=== PATIENT | female | born 2000 | race Two or more races ===

== ENCOUNTER 2023-11-14 09:29 | Outpatient (OUT) | payer OTHER, SELFPAY ==
[2023-11-14 10:06] LABS: Basophils Percent Auto 0.6 % (0.2-2.0); Eosinophils Absolute Auto 0.2 10^3/uL (0.0-0.7); Eosinophils Percent Auto 3.3 % (0.9-7.0); Hematocrit 39.8 % (36.0-48.0); Hemoglobin 13.5 g/dL (12.0-16.0); Immature Granulocytes Abs Auto 0.01 10^3/uL (0.00-0.03); Immature Granulocytes Pct Auto 0.1 % (0.0-0.5); Lymphocytes Absolute Auto 2.1 10^3/uL (1.2-3.8); Lymphocytes Percent Auto 29.9 % (20.5-60.0); Mean Corpuscular HGB Conc 33.9 g/dL (29.9-35.2); Mean Corpuscular Hemoglobin 30.5 pg (26.7-34.0); Mean Platelet Volume 10.6 fL (9.5-13.5); Monocytes Absolute Auto 0.5 10^3/uL (0.3-0.8); Monocytes Percent Auto 7.3 % (1.7-12.0); Neutrophils Percent Auto 58.8 % (43.0-75.0); Platelet Count 189 10^3/uL (150-450); Red Blood Count 4.42 10^6/uL (4.20-5.40); Red Cell Distribution Width 12.3 % (11.0-15.0); White Blood Count 6.9 10^3/uL (4.0-11.0)
[2023-11-14 10:29] LABS: Alanine Aminotransferase 29 U/L (14-59); Albumin Globulin Ratio 1.1; Alkaline Phosphatase 104 U/L (46-116); Anion Gap 11.1; Aspartate Amino Transferase 21 U/L (15-37); Bilirubin Total 0.8 mg/dL (0.2-1.0); Calcium 9.3 mg/dL (8.5-10.1); Chloride 101 mmol/L (98-107); Chol HDL Ratio 3.1; Cholesterol 158 mg/dL (<=200); Estimated GFR (African America >60 (>=60); Estimated GFR (Non-African Ame >60 (>=60); Globulin 3.5 g/dL; Glucose 89 mg/dL (74-106); HDL Cholesterol 51 mg/dL (40-60); LDL Cholesterol Calculated 99.4 mg/dL; Potassium 4.1 mmol/L (3.5-5.1); Sodium 138 mmol/L (136-145); Total Protein 7.5 g/dL (6.4-8.2); Triglycerides 38 mg/dL (<=150); VLDL CHOLESTEROL 7.6 mg/dL
[2023-11-15 05:08] LABS: HIV Ab/p24 Ag Screen Non Reactive (Non Reactive)
[2023-11-15 12:10] LABS: Rapid Plasma Reagin, Quant Non Reactive titer (NonRea<1:1)
[2023-11-15 20:08] LABS: Neisseria gonorrhoeae, NAA Negative (Negative)
== END 2023-11-14 09:30 | disposition home or self-care (01) ==
LOC: LAB 09:33
DX: Z00.00 Encounter for general adult medical examination without abnormal findings (principal); Z72.51 High risk heterosexual behavior
CPT/HCPCS: 36415; 80053; 80061; 85025; 86592; 87389; 87491; 87591

== ENCOUNTER 2023-11-21 10:47 | Outpatient (OUT) | payer OTHER, SELFPAY ==
--- NOTE | 2023-11-21 10:51 | US_ITS ---
[facility] [address] Patient Name: CAROL ARRIOLA MRN: [id number] date: 2000 Sex: F Assigned Patient Location: [place] Current Patient Location: [place] Accession/Order Number: [id number] Exam Date: 11/21/2023 10:52 Report Date: 11/21/2023 13:29 At the request of: SOCORRO WALKER Procedure: US venous doppler LE LT EXAMINATION: US venous doppler LE LT HISTORY: Calf pain, left M79.662 COMPARISON: No relevant comparison available. FINDINGS: REGION: Left lower extremity THROMBI: None. COMPRESSIBILITY: Normal compressibility. FLOW: Normal waveform and antegrade flow between 5 and 20 cm/s. OTHER: None. US/US venous doppler LE LT IMPRESSION: 1. No deep vein thrombus within the left lower extremity. Electronically authenticated by: WALKER NARANJO Date: 11/21/2023 13:29
--- OUTSIDE RECORDS SUMMARY | 2023-11-21 11:10 | XMS_ITS | CCD ---
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 Neurologic: Alert and oriented x 3 and Normal speech. MUSCULOSKELETAL EXAMINATION: Gait: Normal walking mechanics and normal gait Bony Alignment: Normal alignment Inspection: Swelling: yes. Redness: no. Ecchymosis: no Palpation: No tenderness to palpation syndesmotic ligament or lateral collateral ligaments. ROM AND Strength: Dorsiflexion: Full A/PROM noted with full muscle strength bilaterally Plantar flexion: Full A/PROM noted with full muscle strength bilaterally Inversion: Full A/PROM noted with full muscle strength bilaterally Eversion: Full A/PROM noted with full muscle strength bilaterally Skin: Normal Neurovascularly intact distally Specialized Tests: There is no warmth, erythema, swelling or pain noted on examination of the bilateral calf areas. IMAGING: No imaging was performed today. MAXIMILIANO Schmitz PA-C 10/01/2021 9:01 AM Signed Transitioning out of the boot: 1. Day 1: Take boot off for 2-3 hours during the day, as tolerated. If you were provided with an ankle brace, wear the brace for the 2-3 hours that you are not wearing the boot. Then remove the brace and wear boot the rest of the day, except while showering or sleeping. 2. Day 2: Take boot off for 4-5 hours during the day. If you were provided with an ankle brace, wear the brace for the 4-5 hours that you are not wearing the boot. Then remove the brace and wear boot the rest of the day, except while showering or sleeping. 3. Day 3: Take boot off for 6-7 hours during the day. If you were provided with an ankle brace, wear the brace for the 6-7 hours that you are not wearing the boot. Then remove the brace and wear boot the rest of the day, except while showering or sleeping. 4. Day 4: Take boot off for 8-9 hours during the day. If you were provided with an ankle brace, wear the brace for the 8-9 hours that you are not wearing the boot. Then remove the brace and wear boot the rest (more content not included)... [facility] CNOVon 09-17-2021 CNOV Office Visit (ORFTMN ) BRIAN GUIDRY ([id number]) 2 F Date Time Provider Department 09/17/21 3:00 PM ALECIA PANTOJA During your visit today, we recorded the following information about you: Alecia Pantoja PA-C 09/17/2021 4:23 PM Signed PROVIDER: Alecia Pantoja PA-C CC: New, Pain, and Swelling of the Left Ankle Injury/Surgery Date: 09/16/2021 Procedure: N/A HPI: This is a 20 year old female who is here for evaluation of her left ankle. Patient states that she was playing basketball and fell landing on her left ankle wrong. She states that this happened yesterday. She states that she has pain and swelling on the lateral aspect of her ankle. She states that she went to the ER and was placed into a tall walking boot. She states that the boot is helpful as it has decreased her pain. PAIN EVALUATION 09/17/2021 1506 Pain Level: 1 Pain Location: Ankle-Left Description: Aching;Dull;Sore Duration Amount of Time: 1 Duration Units: Days Frequency: Intermittent with movement Intervention/Comfort measure: Medication;Reposition ;Relaxation;Cold ASSESSMENT: (S93.492A) High ankle sprain of left lower extremity, initial encounter (primary encounter diagnosis) PLAN: Discussed options with the patient and recommended: 1. Continue tall boot, WBAT x 2 weeks. Activity modifications Patient will follow up in 2 weeks. Transition to brace and start PT if ready. Detailed instructions were reviewed with the patient and all questions were answered in detail. Patient voiced understanding and compliance with the above plan. We discussed emergent need to return to the express care or go to the emergency department. We discussed red flags associated with this condition and emergent treatment if they present. I spent a total of 30 minutes on the date of the service which included preparing to see the patient, [id number] patient care, completing clinical documentation, obtaining and/or reviewing separately obtained history, performing a medically appropriate examination, counseling and educating the patient/family/caregi karon, ordering medications, tests, or procedures and communicating results to the patient/family/caregi karon. PHYSICAL FINDINGS: Vitals: There were no vitals taken for this visit. There were no vitals taken for this visit. Patient's vitals and nursing notes were reviewed. General appearance: healthy, alert, well hydrated, pleasant, no distress. Cardiovascular: no signs of upper or lower extremity edema Respiratory: no respiratory distress, no audible wheezing, no labored breathing Psychiatric: mood and affect are appropriate Skin: no abrasions or open wounds. Neurologic: Alert and oriented x 3 and Normal speech. MUSCULOSKELETAL EXAMINATION: Gait: patient ambulates with the assistance of a crutches Bony Alignment: Normal alignment Inspection: Swelling: anterior lateral ankle. Redness: no. Ecchymosis: no Palpation: Greatest along lateral collateral ligaments and syndesmotic ligament. Mild tenderness to palpation anterior/medial ankle. No tenderness to palpation proximal fibula, base of the 5th MT or Lisfranc joint. ROM AND Strength: Dorsiflexion: Full A/PROM noted with full muscle strength bilaterally Plantar flexion: Full A/PROM noted with full muscle strength bilaterally Inversion: Full A/PROM noted with full muscle strength bilaterally Eversion: Full A/PROM noted with full muscle strength bilaterally Skin: Normal Neurovascularly intact distally Specialized Tests: There is no warmth, erythema, swelling or pain noted on examination of the bilateral calf areas. IMAGING: Final results and radiologist's interpretation, available in the [facility] health record. Images were reviewed with the patient/family members in the office today. My personal interpretation of the performed imaging is no acute abnormality. Review of Systems Constitutional: Negative. HENT: Negative. Respiratory: Negative. Cardiovascular: Negative. Gastrointestinal: Negative. Endocrine: Negative. Skin: Negative. Neurological: Negative. Hematological: Negative. Musculoskeletal: Negative. All other systems reviewed and are negative. PMHX: ACTIVE PROBLEM LIST High Ankle Sprain of Left Lower Extremity PSH: No past surgical history on file. FAMILY HX: No family history on file. SOCIAL: Social History Tobacco Use - Smoking status: Not on file - Smokeless tobacco: Not on file Substance Use Topics - Alcohol use: Not on file - Drug use: Not on file ALLERGY: Patient has no known allergies. MEDS: No current outpatient medications on file. No current facility-administered medications for this visit. MAXIMILIANO Schmitz PA-C 09/17/2021 4:09 PM Signed Proper use of a tall or short boot: 1. Boot should be worn all day, exc (more content not included)... [facility] ED NOTEon 09-17-2021 ED NOTE HNO ID: [id number] Author: Mindi Parada PA-C Service: Emergency Medicine Author Type: Physician Trouble Shooter Type: ED Notes Filed: 09/17/2021 6:51 PM Note Text: Emergency Services: ED Call Back Questionnaire SERVICE DATE: 09/16/2021 Are you feeling better? Yes Any questions about discharge instructions and follow-up care? No Were you able to make a follow up appointment? No, referred to appointment hotline Do you have any further questions? No Is there anything that we could have done differently to improve your ED visit? No SIGNATURE: Mindi Parada PA-C PATIENT NAME: Brian Guidry DATE: September 17, 2021 TIME: 6:50 PM [facility] ED NOTE HNO ID: [id number] Author: Roseann Jarvis RN Service: Nursing Author Type: Registered Nurse Type: ED Notes Filed: 09/17/2021 2:06 AM Note Text: Discharged pt. with diagnosis of ankle pain and ankle strain. Pt. skin is warm, dry, and acyanotic. Respirations even and nonlabored. Pain now 0/10. Discharge follow up instructions given. Pt. verbalized understanding of discharge instructions. Pt. Refused D/C vital signs. Pt. stable. Pt. has no further questions and/or concerns at this time. Heplock removed. Crutch walking instructions given. Pt. ambulates with steady gait while using crutches. [facility] ED PROV NOTEon 09-17-2021 ED PROV NOTE HNO ID: [id number] Author: Malcolm Alaniz MD Service: Emergency Medicine Author Type: Physician Type: ED Provider Notes Filed: 09/17/2021 1:37 AM Note Text: ED Provider Note Patient Name: Brian Guidry : 2000 SERVICE DATE: 09/16/21 History Patient presents with: Ankle Pain: Pt was playing basketball and stepped on someone's foot and her ankle isai. Pain is 3/10. Left ankle is in a splint. Has not taken any OTC rx for pain. Moderate amount of swelling. Ms. Brian Guidry is a 20 year old female with no significant PMH who presents with ankle pain after rolling her ankle. History provided by: Patient analyst used: No Ankle Pain Location: Left ankle Quality: Sharp Severity: Moderate (3/10) Onset quality: Sudden (basketball injury) Duration: 6 hours (occurred at 6 PM, now 12 AM) Timing: Intermittent Progression: Waxing and waning Chronicity: New Context: Baskeball injury - rolled her ankle Relieved by: Rest, elevation Worsened by: Weight bearing, cannot bear weight per patient Ineffective treatments: Ice Associated symptoms: no abdominal pain, no chest pain, no congestion, no cough, no diarrhea, no fatigue, no fever, no headaches, no nausea, no shortness of breath, no sore throat and no vomiting No past medical history on file. No past surgical history on file. No family history on file. Social History Tobacco Use - Smoking status: Not on file - Smokeless tobacco: Not on file Substance and Sexual Activity - Alcohol use: Not on file - Drug use: Not on file - Sexual activity: Not on file ALLERGIES No Known Allergies Review of Systems Constitutional: Negative for chills, fatigue and fever. HENT: Negative for congestion and sore throat. Eyes: Negative. Respiratory: Negative for cough and shortness of breath. Cardiovascular: Negative for chest pain, palpitations and leg swelling. Gastrointestinal: Negative for abdominal pain, constipation, diarrhea, nausea and vomiting. Genitourinary: Negative for difficulty urinating, dysuria, frequency and urgency. Musculoskeletal: Positive for gait problem. Neurological: Negative for dizziness, syncope, weakness, light-headedness, numbness and headaches. Tingling in left foot Psychiatric/Behaviora l: Negative. Physical Exam Vitals [09/16/219] BP Pulse Temp Temp src Resp SpO2 Weight Height 118/73 86 36.9 ?C (98.5 ?F) Oral 18 100 % -- -- Physical Exam Constitutional: General: She is not in acute distress. Appearance: Normal appearance. She is normal weight. HENT: Head: Normocephalic and atraumatic. Mouth/Throat: Mouth: Mucous membranes are moist. Pharynx: Oropharynx is clear. Eyes: Extraocular Movements: Extraocular movements intact. Conjunctiva/sclera: Conjunctivae normal. Pupils: Pupils are equal, round, and reactive to light. Cardiovascular: Rate and Rhythm: Normal rate and regular rhythm. Pulses: Normal pulses. Heart sounds: Normal heart sounds. Pulmonary: Effort: Pulmonary effort is normal. Breath sounds: Normal breath sounds. Abdominal: General: Abdomen is flat. Bowel sounds are normal. Palpations: Abdomen is soft. Musculoskeletal: General: Swelling (left ankle), tenderness (left lateral ankle) and signs of injury (left ankle, non weight bearing) present. Cervical back: Normal range of motion and neck supple. Left lower leg: Edema (ankle) present. Skin: General: Skin is warm and dry. Capillary Refill: Capillary refill takes less than 2 seconds. Neurological: General: No focal deficit present. Mental Status: She is alert and oriented to person, place, and time. Mental status is at baseline. Psychiatric: Mood and Affect: Mood normal. Behavior: Behavior normal. Diagnostic Testing ED Labs Ordered and Reviewed - No data to display Procedures ED Course / Clinical Impression ED Course as of 09/17/21 013 Malcolm Alaniz's Documentation MonSep 17, 2021 0025 Attending Note I evaluated the patient and personally participated in the aggarwal components. I agree with the resident's findings and plan as documented and have discussed the case and management of the patient's care with the resident. pt playimng b ball today rolled ankle now pain w ambulation exam laterla swelling pain to palape dital fibula dpp intact xray reviewed w rads imp ankle sprain sydosmotoc strain dw orth will place in boot for fu w ortho Signature: Malcolm Alaniz MD Date: 09/17/2021 Time: 12:25 AM Others' Documentation MonSep 17, 2021 0028 XR ANKLE GENERAL 3V AP/LAT/OBL LEFT Distal tibiofibular syndesmotic ligamentous injury given the widening. Soft tissue swelling of ankle. [TINA] ED Course User Index [TINA] Alecia Cisse MD Clinical Impressions as of 09/17/21 0137 Ankle pain Ankle sprain ED Medication Administration from 09/16/2021 2106 to 09/17/2021 0057 Date/Time Order Dose Route Action 09/18/19 (more content not included)... [facility] XR ANKLE 1V LTon 09-17-2021 XR ANKLE 1V LT * * *Final Report* * * DATE OF EXAM: Sep 17 2021 4:11PM AOX 5299 - XR ANKLE 1V LT / PROCEDURE REASON: High ankle sprain of left lower extremity, initial encounter * * * * Physician Interpretation * * * * HISTORY (as given from clinical provider): High ankle sprain of left lower extremity, initial encounter . Additional history provided by the performing technologist (if any): left ankle injury yesterday TECHNIQUE: XR ANKLE 3V AP/LAT/OBL LT, XR ANKLE 1V LT Laterality: LEFT Views: 3 (accession [id number]), 1 (accession [id number]) COMPARISON: 09/16/2021 RESULT: Osteophyte at the tip of the medial malleolus. No fractures. Clear spaces are within normal limits including on the gravity stress view. No other significant abnormality. --- IMPRESSION: NO ACUTE OSSEOUS ABNORMALITY Supervisor Dumping: DONNA Transcribe Date/Time: Sep 17 2021 4:33P Dictated by : PALOMO SANCHEZ MD This examination was interpreted and the report reviewed and electronically signed by: PALOMO SANCHEZ MD on Sep 17 2021 4:38PM EST [id number] [facility] XR ANKLE 3V AP/LAT/OBL LTon 09-17-2021 XR ANKLE 3V AP/LAT/OBL LT * * *Final Report* * * DATE OF EXAM: Sep 17 2021 4:11PM AOX 5298 - XR ANKLE 3V AP/LAT/OBL LT / PROCEDURE REASON: High ankle sprain of left lower extremity, initial encounter * * * * Physician Interpretation * * * * HISTORY (as given from clinical provider): High ankle sprain of left lower extremity, initial encounter . Additional history provided by the performing technologist (if any): left ankle injury yesterday TECHNIQUE: XR ANKLE 3V AP/LAT/OBL LT, XR ANKLE 1V LT Laterality: LEFT Views: 3 (accession [id number]), 1 (accession [id number]) COMPARISON: 09/16/2021 RESULT: Osteophyte at the tip of the medial malleolus. No fractures. Clear spaces are within normal limits including on the gravity stress view. No other significant abnormality. --- IMPRESSION: NO ACUTE OSSEOUS ABNORMALITY Supervisor Dumping: PSCB Transcribe Date/Time: Sep 17 2021 4:33P Dictated by : PALOMO SANCHEZ MD This examination was interpreted and the report reviewed and electronically signed by: PALOMO SANCHEZ MD on Sep 17 2021 4:38PM EST [id number] N [facility] XR TIBIA FIBULA 2V AP/LAT LT on 09-17-2021 XR TIBIA FIBULA 2V AP/LAT LT * * *Final Report* * * DATE OF EXAM: Sep 17 2021 12:56AM EGX 5265 - XR TIBIA FIBULA 2V AP/LAT LT / PROCEDURE REASON: Fracture, tib/fib * * * * Physician Interpretation * * * * EXAMINATION: XR TIBIA FIBULA 2V AP/LAT LT HISTORY: left lower leg trauma, known ankle sprain, see ankle for lat distal Fracture, tib/fib. TECHNIQUE: XR TIBIA FIBULA 2V AP/LAT LT Laterality: LEFT Number of different views (projections): 2 COMPARISON: None RESULT: IMPRESSION: No acute fracture or dislocation proximal tibia-fibula. Supervisor Dumping: PSCVoCare Transcribe Date/Time: Sep 17 2021 12:58A Dictated by : MARGARITO FENTON MD This examination was interpreted and the report reviewed and electronically signed by: GILBERT ROJAS MD on Sep 17 2021 1:04AM EST [id number] [facility] ED Triage Noteon 09-16-2021 ED Triage Note HNO ID: [id number] Author: Adeola Cline PA-C Service: ? Author Type: Physician Trouble Shooter Type: ED Triage Notes Filed: 09/16/2021 9:49 PM Note Text: ED INTAKE NOTE Patient Name: Brian Guidry Service Date: 09/16/21 BRIEF HPI: 20 year old female coming to the ED with left ankle pain. States she was playing basketball earlier and rolled left ankle with inversion injury. Unable to walk since that time. Arrives with splint in place. INTAKE WORKUP: Imaging: XR: Left ankle SIGNATURE: Adeola Cline PA-C [facility] XR ANKLE 3V AP/LAT/OBL LTon 09-16-2021 XR ANKLE 3V AP/LAT/OBL LT * * *Final Report* * * DATE OF EXAM: Sep 16 2021 9:48PM EGX 5298 - XR ANKLE 3V AP/LAT/OBL LT / PROCEDURE REASON: Ankle pain, initial exam * * * * Physician Interpretation * * * * EXAMINATION: XR ANKLE 3V AP/LAT/OBL LT HISTORY: Ankle pain, initial exam; left ankle pain from fall while playing basket ball, prior injury to ankle TECHNIQUE: LEFT ankle radiographs, 3 views. COMPARISON: None RESULT: Ankle soft tissue swelling. Distal tibiofibular syndesmotic widening. No acute fracture. IMPRESSION: Distal tibiofibular syndesmotic ligamentous injury given the widening. Soft tissue swelling of ankle. Supervisor Dumping: PSCJohana Transcribe Date/Time: Sep 16 2021 9:49P Dictated by : MARGARITO FENTON MD This examination was interpreted and the report reviewed and electronically signed by: GILBERT ROJAS MD on Sep 16 2021 10:23PM EST [id number] [facility] Lab Reportson 03-06-2020 Lab Reports [id number]. 00CD:127 [facility] Formson 02-20-2020 Forms [id number]. 00CD:127 Normal [facility] C Strep Screenon 09-20-2019 Strep Screen Microbiology PROCEDURE: Strep Screen Culture [R1] SOURCE: Throat BODY SITE: COLLECTED DATE/TIME: 09/18/2019 16:30 EDT RECEIVED DATE/TIME: 09/18/2019 19:05 EDT START DATE/TIME: 09/18/2019 19:05 EDT FREE TEXT SOURCE: FELIX SAMS, Matt WASHINGTON MD, Matt Siddiqui FINAL REPORTS Final Report [] Verified Date/Time: 09/20/2019 12:44 EDT No Pathogenic Streptococcus Isolated Performing Locations R1: This test was performed at: [facility], [address] [place] [address], [id number] , Normal [facility] Comment on above: Performed By: #### 2 [id number] #### [facility] Laboratory [address] [place] [id number] Coding Summary.on 09-20-2019 Coding Summary. CODING DATE: 09/20/2019 FINAL [facility] STATUS: Home (Routine DC) PAYOR: Medicaid ADMIT DX: REASON FOR VISIT DX: J02.9 Acute pharyngitis, unspecified FINAL DX: PRINCIPAL: J02.9 Acute pharyngitis, unspecified SECONDARY: PYMT PROC APC STAT DESCRIPTION DOCTOR NAME DATE NOTE: The code number assigned matches the documented diagnosis and / or procedure in the patient's chart. However, the narrative phrase printed from the coding software may appear abbreviated, or result in slightly different terminology. Coded By: Sherri Raman Date Saved: 09/20/2019 12:10 pm [facility] Vital Signs Date Time Vital Sign Value Performing Clinician Facility 07-10-2023 09:01-0500 Body temperature 98.01 [degF] Martha Porter MD Work Phone: [facility] 07-10-2023 09:01-0500 Diastolic blood pressure 79 mm[Hg] Martha Porter MD Work Phone: [facility] 07-10-2023 09:01-0500 Heart rate 85 /min Martha Porter MD Work Phone: [facility] 07-10-2023 09:01-0500 Respiratory rate 12 /min Martha Porter MD Work Phone: [facility] 07-10-2023 09:01-0500 SaO2% (BldA) [Mass fraction] 99 % Martha Porter MD Work Phone: [facility] 07-10-2023 09:01-0500 Systolic blood pressure 129 mm[Hg] Martha Porter MD Work Phone: [facility] 03-02-2022 18:04-0400 Body height 172.7 cm Rivera Braxton [facility] [place] 03-02-2022 18:04-0400 Body temperature 97.88 [degF] Rivera Braxton [facility] 03-02-2022 18:04-0400 Body weight 86.2 kg Rivera Braxton [facility] [place] 03-02-2022 18:04-0400 Diastolic blood pressure 80 mm[Hg] Rivera Braxton [facility] 03-02-2022 18:04-0400 Heart rate 76 /min Rivera Braxton [facility] [place] 03-02-2022 18:04-0400 Respiratory rate 16 /min Rivera Braxton [facility] 03-02-2022 18:04-0400 SaO2% (BldA) [Mass fraction] 100 % Riverachriss Braxton [facility] 03-02-2022 18:04-0400 Systolic blood pressure 121 mm[Hg] Rivera Braxton [facility] Encounters Encounter Date Encounter Type Care Provider Facility Start: 07-10-2023 End: 07-10-2023 Emergency department patient visit Martha Porter MD Work Phone: [facility] Emergency Dept Comment on above: Std Check (Pt would like to be tested of STD c/o pain with urination x 3 days.) Start: 09-19-2022 Encounter for genera l adult medical examination without abnormal findings [facility] Start: 09-13-2022 End: 09-14-2022 ambulatory [facility] Facility:H1 Start: 09-13-2022 End: 09-14-2022 Encounter for general adult medical examination without abnormal findings [facility] Facility:H1 Start: 03-02-2022 End: 03-02-2022 Emergency department patient visit Rivera Braxton [facility] Adult ED Results Pending Start: 11-01-2021 End: 11-01-2021 ambulatory Malcolm Zhao PT Work Phone: [facility] Comment on above: High ankle sprain of left lower extremity, subsequent encounter Start: 10-04-2021 End: 10-04-2021 ambulatory Malcolm Zhao PT Work Phone: [facility] Comment on above: High ankle sprain of left lower extremity, subsequent encounter Start: 10-01-2021 End: 10-01-2021 Patient encounter procedure Alecia Pantoja PA-C Work Phone: Orthopaedics Comment on above: High ankle sprain of left lower extremity, subsequent encounter (Primary Dx) Procedures Date Procedure Procedure Detail Performing Clinician Start: 07-10-2023 Smr prim src wet ryan nt nfct agt Martha Porter MD Work Phone: Start: 07-10-2023 Urine test visual color cmprsn meths Martha Porter MD Work Phone: Plan of Treatment Date Care Activity Detail Author Start: 11-21-2051 Shingles (RZV) Vacci ne (1 of 2) Shingles (RZV) Vaccine (1 of 2) [facility] Start: 03-03-2023 Influenza vaccination Influenza Vacc ine (#1) [facility] Start: 2022 Screening for malign ant neoplasm of cervix Pap Smear [facility] Start: 03-03-2022 Influenza vaccination INFLUENZ A (Season Ended) [facility] Start: 2020 Urine microalbumin profile DTAP,TDAP,TD (1 - Tdap) [facility] Start: 11-21-2019 CHLAMYDIA SCREENING (18-24) CHLAMYDIA SCREENING (18-24) [facility] Start: 11-21-2019 GC (GONORRHEA) SCREE SIRISHA (18-24) GC (GONORRHEA) SCREENING (18-24) [facility] Start: 11-21-2019 HEPATITIS C SCREENING HEPATITIS C SC LAINING [facility] Start: 11-21-2019 Hepatitis C screening [facility] Start: 11-21-2019 HIV SCREENING HIV SCREENING [facility] Start: 11-21-2019 Screening for Chlamy akin trachomatis STI Screening (Age 18-24) [facility] Start: 11-21-2019 Tetanus + diphtheria + acellular pertussis vaccine (product) Tdap Booster [facility] Start: 2017 Meningococcal B (Bexsero,OMV) Vaccine (Optional,16-23 years) Meningococcal B (Bexsero,OMV) Vaccine (Optional,16-23 years) [facility] Start: 2016 HIV screening HIV Test [facility] Start: 11-21-2015 PEDS TO ADULT TRANSI TION ANNUAL ASSESSMENT PEDS TO ADULT TRANSITION ANNUAL ASSESSMENT [facility] Start: 2013 Adult depression screening assessment DEPRESSION SCREENING [facility] Start: 2013 PEDS TO ADULT TRANSI TION INITIAL DISCUSSION PEDS TO ADULT TRANSITION INITIAL DISCUSSION [facility] Start: 2012 HPV VACCINE (1 - 2-d ose series) HPV VACCINE (1 - 2-dose series) [facility] Start: 2012 Vaccination for leidy n papillomavirus HPV Vaccine (1 - 2-dose series) [facility] Start: 11-21-2011 MENINGOCOCCAL B: Consider based on risk (1 of 2 - Risk Bexsero 2-dose series) MENINGOCOCCAL B: Consider based on risk (1 of 2 - Risk Bexsero 2-dose series) [facility] Start: 2006 COVID-19 VACCINE (1) COVID-19 VACCIN E (1) [facility] Start: 05-23-2002 COVID-19 Vaccine (#1) COVID-19 Vacci ne (#1) [facility] Start: 2001 Hepatitis B vaccination Hepati tis B (HBV) Vaccine (1 of 3 - 3-dose series) [facility] End: 07-10-2023 Iadna nos amplified probe tq each organism GC/CHLAMYDIA/TRICHOMONA S AMPLIFICATION Microbiology STAT One time for 1 Occurrences starting 07/10/2023 until 07/10/2023 [facility] Comment on above: One time for 1 Occur rences starting 07/10/2023 until 07/10/2023 PT PLAN OF CARE CERTIFICATION PT PLAN OF CARE CERTIFICATION Procedures Routine High ankle sprain of left lower extremity, subsequent encounter Ordered: 10/04/2021 [facility] Work Phone: Comment on above: Ordered: 10/04/2021 End: 07-11-2023 URINALYSIS - MICRO (SATELLITE) URINALYSIS - MICRO (SATELLITE) Lab Only STAT Morning Blood Draw for 1 Occurrences starting 07/11/2023 until 07/11/2023 [facility] Comment on above: Morning Blood Draw f or 1 Occurrences starting 07/11/2023 until 07/11/2023 URINALYSIS - MICRO (SATELLITE) URINALYSIS - MICRO (SATELLITE) Lab Only STAT 07/10/2023 10:06 AM EST [facility] End: 07-10-2023 Urnls dip stick/tablet rgnt auto w/o microscopy [facility] Work Phone: Comment on above: One time for 1 Occur rences starting 07/10/2023 until 07/10/2023 [facility] Payers Date Payer Category Payer Unknown 2020 Medicaid [place] [employer] [facility] MEDICAID [id number] 2020-Present [phone] [place] [id number] Medicaid [id number] 2001 Unknown [id number] 1959 Unknown [id number] Social History Date Type Detail Facility Tobacco smoking stat [facility] Tobacco smoking consumption unknown [facility] Start: 2001 Sex Assigned At Not on file [facility] Start: 09-21-2021 End: 11-01-2021 Exposure to SARS-CoV-2 (event) Not sure [facility] Gender identity Not on file [facility] Clinical Notes 09-16-2021 to 07-10-2023 Discharge InstructionsAttachmentsMalcolm Zhao PT - 11/01/2021 9:16 AM Olga Zhao PT - 10/04/2021 12:56 PM Scooter Wallis - 10/01/2021 9:45 AM EDTPatient Instructions Note Date & Type Note Facility 07-10-2023 Hospital Discharge instructions Martha Porter MD - 07/10/2023 11:28 AM EST Take all antibiotics until gone. Procedures done during this visit: None The following attachments cannot be sent through Care Everywhere.Screening for sexually transmitted infections (Gabonese)documented in this encounter [facility] 11-01-2021 Note HNO ID: [id number] Author: Malcolm Zhao PT Service: ? Author Type: Physical Therapist Type: Progress Notes Filed: 11/01/2021 9:21 AM Note Text: Episode Visit Count: 2 Therapist That Will Oversee The Plan Of Care: Malcolm Zhao Start of Care Date: 10/04/21 Onset Date: 09/17/21 Plan of Care Certification Date: 10/04/21 Next Certification Due Date: 12/03/21 Patient Identified by Name and Date of : Yes REHABILITATION AND SPORTS THERAPY PHYSICAL THERAPY DISCONTINUANCE OF CARE PLAN OF CARE UPDATE: Assessment: Brian Guidry is discontinued from Physical Therapy services due to goal achievement and maximal benefit.. Patient was seen for 2 visits from Start of Care Date: 10/04/21 to 11/01/2021 and treatment included: Therapeutic exercise and Neuromuscular re-education. Patient encouraged to improve strength and continue to brace for basketball activities. No skilled care is required at this point. Goals for Episode of Care: created on 10/04/21 through 12/03/21 [place] in home exercise program.MET Patient will be able to run 30 minutes 3 times per week without pain and Patient will demonstrate running without deviationMET Patient Goals: return to basketballMET SUBJECTIVE: Patient Reason for Visit: L ankle, s/p sprain. Functional Limitations: nothing Previous Treatment: None Pain: Pain Pain Level: 0 Pain Location: Ankle - Left Post Treatment Pain Post Treatment Pain Level: No Change OBJECTIVE MEASURES WITH LEVEL OF FUNCTION: Full depth squat with equal weight shift and not limited by ankle DF mobility Landing mechanics WNL Gait and running Gait WNL Able to complete single leg heel raise on L, with less excursion compared to R Single leg stance with eyes closed with ankle strategy no LOB No pain with assessment TREATMENT: Therapeutic Exercise: 1: *single leg heel raise 2: jogging 3: drop jump 4: vertical jump 5: tuck jump Skilled Intervention: Patient was educated in proper exercise technique and purpose for exercises. Reviewed and educated patient on additions/changes for home exercise program as above (*). Neuromuscular Re-Education: 1: single leg stance, eyes closed Skilled Intervention: Skilled judgment used to assess appropriate program for balance and coordination activity. Billing Therapeutic Exercise Treatment Minutes: 20 Neuromuscular Re-Education Treatment Minutes: 5 Total Treatment Time Minutes (timed/untimed): 25 Malcolm Zhao, PT [facility] 11-01-2021 History of Present illness Narrative Episode Visit Count: 2 Therapist That Will Oversee The Plan Of Care: Malcolm Zhao Start of Care Date: 10/04/21 Onset Date: 09/17/21 Plan of Care Certification Date: 10/04/21 Next Certification Due Date: 12/03/21 Patient Identified by Name and Date of : Yes REHABILITATION AND SPORTS THERAPY PHYSICAL THERAPY DISCONTINUANCE OF CARE PLAN OF CARE UPDATE: Assessment: Brian Guidry is discontinued from Physical Therapy services due to goal achievement and maximal benefit.. Patient was seen for 2 visits from Start of Care Date: 10/04/21 to 11/01/2021 and treatment included: Therapeutic exercise and Neuromuscular re-education. Patient encouraged to improve strength and continue to brace for basketball activities. No skilled care is required at this point. Goals for Episode of Care: created on 10/04/21 through 12/03/21 [place] in home exercise program.MET Patient will be able to run 30 minutes 3 times per week without pain and Patient will demonstrate running without deviationMET Patient Goals: return to basketballMET SUBJECTIVE: Patient Reason for Visit: L ankle, s/p sprain. Functional Limitations: nothing Previous Treatment: None Pain: Pain Pain Level: 0 Pain Location: Ankle - Left Post Treatment Pain Post Treatment Pain Level: No Change OBJECTIVE MEASURES WITH LEVEL OF FUNCTION: Full depth squat with equal weight shift and not limited by ankle DF mobility Landing mechanics WNL Gait and running Gait WNL Able to complete single leg heel raise on L, with less excursion compared to R Single leg stance with eyes closed with ankle strategy no LOB No pain with assessment TREATMENT: Therapeutic Exercise: 1: *single leg heel raise 2: jogging 3: drop jump 4: vertical jump 5: tuck jump Skilled Intervention: Patient was educated in proper exercise technique and purpose for exercises. Reviewed and educated patient on additions/changes for home exercise program as above (*). Neuromuscular Re-Education: 1: single leg stance, eyes closed Skilled Intervention: Skilled judgment used to assess appropriate program for balance and coordination activity. Billing Therapeutic Exercise Treatment Minutes: 20 Neuromuscular Re-Education Treatment Minutes: 5 Total Treatment Time Minutes (timed/untimed): 25 Malcolm Zhao PT documented in this encounter [facility] 10-04-2021 Note HNO ID: [id number] Author: Malcolm Zhao PT Service: ? Author Type: Physical Therapist Type: Progress Notes Filed: 10/04/2021 1:31 PM Note Text: Episode Visit Count: 1 Therapist That Will Oversee The Plan Of Care: Malcolm Zhao Start of Care Date: 10/04/21 Onset Date: 09/17/21 Plan of Care Certification Date: 10/04/21 Next Certification Due Date: 12/03/21 Patient Identified by Name and Date of : Yes REHABILITATION AND SPORTS THERAPY PHYSICAL THERAPY EVALUATION PLAN OF CARE: Assessment: Brian Guidry presents with diagnosis of L ankle sprain that interferes with recreational activities . She presents with impairments in overall function. Prognosis for therapy is Good due to: current objective clinical presentation;acuteness of condition . She will benefit from skilled therapy services to meet the goals established for this plan of care as noted below. Goals for Episode of Care: created on 10/04/21 through 12/03/21 [place] in home exercise program. Patient will be able to run 30 minutes 3 times per week without pain and Patient will demonstrate running without deviation Patient Goals: return to basketball Planned Interventions, Frequency, and Duration: Current Frequency: 1x every other week Duration: 6 weeks Total Number of Visits Planned: 3 Planned Treatment Interventions: Therapeutic exercise (52813);Neuromuscular re-education (38388);Manual therapy (21319);Self-long-term management (94654);Gait Training (12158);Therapeutic activities (69490);[facility] PLAN FOR NEXT VISIT: Assess running Patient demonstrates good understanding of plan of care and treatment. The above goals and plan of care were discussed and agreed upon by patient/family. 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 Falls Interview: No positive findings with falls interview Pain: Pain Pain Level: 0 Pain Location: Ankle - Left Detailed Pain Score: Yes Worst Pain Level: 1 Post Treatment Pain Post Treatment Pain Level: No Change OBJECTIVE MEASURES WITH LEVEL OF FUNCTION: Posture / Alignment R LE Anatomical Alignment Weight-Bearing: R Low arch height L LE Anatomical Alignment Weight-Bearing: L Low arch height Ankle Observations Ankle Brace/Support: Lace-up ankle brace LE AROM R Ankle Dorsiflexion: 4 Degrees L Ankle Dorsiflexion: 6 Degrees LE PROM R Ankle Dorsiflexion: 9 Degrees L Ankle Dorsiflexion: 9 Degrees LE Flexibility Flexibility: Ankle Dorsiflexion R Ankle Dorsiflexion Flexibility: 25 (closed chain) L Ankle Dorsiflexion Flexibility: 30 degrees (closed chain) Functional Strength Functional Strength: Bilateral Heel Raise R Single Leg Heel Raise: 25 (11 cm) L Single Leg Heel Raise: 25 (11 cm) Bilateral Heel Raise : 20 (no pain) Special Tests - Ankle Ankle Special Tests: Syndesmosis External Rotation;Syndesmosis Squeeze Test Gait Gait Observation: WNL Balance Static Standing Balance: Single Leg Stance Single Leg Stance: ankle strategy Education: Education Learning/educational needs: Home exercise program TREATMENT: PT Treatment Interventions: Neuromuscular Re-Education;Therapeutic Exercise Evaluation Therapeutic Exercise: 1: *single leg heel raise 2: *walking program Skilled Intervention: Patient was educated in proper exercise technique and purpose for exercises. Reviewed and educated patient on additions/changes for home exercise program as above (*). Skilled judgment was provided in selection of appropriate interventions. Provided written instruction for home exercise program to facilitate proper performance and compliance. Neuromuscular Re-Education: 1: single leg stance, eyes closed Skilled Intervention: Reviewed and educated patient on additions/changes for home exercise program as above (*). Billing * Evaluation Low Complexity: 1 Unit Therapeutic Exercise Treatment Minutes: 10 Neuromuscular Re-Education Treatment Minutes: 5 Total Treatment Time Minutes (timed and untimed codes) : 40 Malcolm Zhao, PT [facility] 10-04-2021 History of Present illness Narrative Episode Visit Count: 1 Therapist That Will Oversee The Plan Of Care: Malcolm Zhao Start of Care Date: 10/04/21 Onset Date: 09/17/21 Plan of Care Certification Date: 10/04/21 Next Certification Due Date: 12/03/21 Patient Identified by Name and Date of : Yes REHABILITATION AND SPORTS THERAPY PHYSICAL THERAPY EVALUATION PLAN OF CARE: Assessment: Brian Guidry presents with diagnosis of L ankle sprain that interferes with recreational activities . She presents with impairments in overall function. Prognosis for therapy is Good due to: current objective clinical presentation;acuteness of condition . She will benefit from skilled therapy services to meet the goals established for this plan of care as noted below. Goals for Episode of Care: created on 10/04/21 through 12/03/21 [place] in home exercise program. Patient will be able to run 30 minutes 3 times per week without pain and Patient will demonstrate running without deviation Patient Goals: return to basketball Planned Interventions, Frequency, and Duration: Current Frequency: 1x every other week Duration: 6 weeks Total Number of Visits Planned: 3 Planned Treatment Interventions: Therapeutic exercise (38212);Neuromuscular re-education (96026);Manual therapy (21848);Self-long-term management (34026);Gait Training (45548);Therapeutic activities (30931);Patient/Family/Caregiv er Education PLAN FOR NEXT VISIT: Assess running Patient demonstrates good understanding of plan of care and treatment. The above goals and plan of care were discussed and agreed upon by patient/family. 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 Recreation / Current Exercise: basketball Intake Information: Prescription present Previous Treatment: Immobilizer/brace Falls Interview: No positive findings with falls interview Pain: Pain Pain Level: 0 Pain Location: Ankle - Left Detailed Pain Score: Yes Worst Pain Level: 1 Post Treatment Pain Post Treatment Pain Level: No Change OBJECTIVE MEASURES WITH LEVEL OF FUNCTION: Posture / Alignment R LE Anatomical Alignment Weight-Bearing: R Low arch height L LE Anatomical Alignment Weight-Bearing: L Low arch height Ankle Observations Ankle Brace/Support: Lace-up ankle brace LE AROM R Ankle Dorsiflexion: 4 Degrees L Ankle Dorsiflexion: 6 Degrees LE PROM R Ankle Dorsiflexion: 9 Degrees L Ankle Dorsiflexion: 9 Degrees LE Flexibility Flexibility: Ankle Dorsiflexion R Ankle Dorsiflexion Flexibility: 25 (closed chain) L Ankle Dorsiflexion Flexibility: 30 degrees (closed chain) Functional Strength Functional Strength: Bilateral Heel Raise R Single Leg Heel Raise: 25 (11 cm) L Single Leg Heel Raise: 25 (11 cm) Bilateral Heel Raise : 20 (no pain) Special Tests - Ankle Ankle Special Tests: Syndesmosis External Rotation;Syndesmosis Squeeze Test Gait Gait Observation: WNL Balance Static Standing Balance: Single Leg Stance Single Leg Stance: ankle strategy Education: Education Learning/educational needs: Home exercise program TREATMENT: PT Treatment Interventions: Neuromuscular Re-Education;Therapeutic Exercise Evaluation Therapeutic Exercise: 1: *single leg heel raise 2: *walking program Skilled Intervention: Patient was educated in proper exercise technique and purpose for exercises. Reviewed and educated patient on additions/changes for home exercise program as above (*). Skilled judgment was provided in selection of appropriate interventions. Provided written instruction for home exercise program to facilitate proper performance and compliance. Neuromuscular Re-Education: 1: single leg stance, eyes closed Skilled Intervention: Reviewed and educated patient on additions/changes for home exercise program as above (*). Billing * Evaluation Low Complexity: 1 Unit Therapeutic Exercise Treatment Minutes: 10 Neuromuscular Re-Education Treatment Minutes: 5 Total Treatment Time Minutes (timed and untimed codes) : 40 Malcolm Zhao PT documented in this encounter [facility] 10-01-2021 Note HNO ID: [id number] Author: Scooter Flores Service: ? Author Type: Hand Crown Pouncer Type: Progress Notes Filed: 10/01/2021 9:45 AM Note Text: PT ASSESSMENT - CASTING ROOM Brian presents for Application of brace. Applied airsport to Left ankle Patient has been instructed in Care and proper application of brace. Scooter Flores Beeper: [id number] [facility] 10-01-2021 Note HNO ID: [id number] Author: Alecia Pantoja PA-C Service: ? Author Type: Physician Trouble Shooter Type: Progress Notes Filed: 10/01/2021 9:07 AM Note Text: SELF Specialty Problems Ortho Problems High ankle sprain of left lower extremity CC: Established Patient, Follow Up, and Pain of the Left Ankle Injury/Surgery Date: 09/16/2021 Procedure: N/A Brian Guidry is a 20 year old female that returns today for follow up of high ankle sprain of left lower extremity. Patient states that she feels a lot better than her last visit. She denies any pain or swelling at today's visit. She states that the only soreness she gets is if she has been on her feet for an extended amount of time however still states that it is minimal. Swelling has subsided. She states that she still wears the walking boot majority of the time however states she does not wear it sometimes at home but has not increase in pain or swelling. PAIN EVALUATION 10/01/2021 0829 Pain Level: 1 Pain Location: Ankle-Left Description: Aching;Dull;Sore Duration Units: Weeks Frequency: Intermittent Intervention/Comfort measure: Medication;Reposition;Relaxati on;Cold ASSESSMENT: No diagnosis found. PLAN: Discussed options with the patient and recommended: weaning out of boot and into AirSport brace. Instructions given. Start PT Patient will follow up in 4 weeks Detailed instructions were reviewed with the patient and all questions were answered in detail. Patient voiced understanding and compliance with the above plan. We discussed emergent need to return to the express care or go to the emergency department. We discussed red flags associated with this condition and emergent treatment if they present. I spent a total of 20 minutes on the date of the service which included preparing to see the patient, [id number] patient care, completing clinical documentation, obtaining and/or reviewing separately obtained history, performing a medically appropriate examination, counseling and educating the patient/family/caregiver and communicating results to the patient/family/caregiver. Review of Systems Constitutional: Negative. HENT: Negative. Respiratory: Negative. Cardiovascular: Negative. Gastrointestinal: Negative. Endocrine: Negative. Skin: Negative. Neurological: Negative. Hematological: Negative. Musculoskeletal: Negative. All other systems reviewed and are negative. PHYSICAL FINDINGS: There were no vitals taken for this visit. General appearance: healthy, alert, well hydrated, pleasant, no distress. Cardiovascular: no signs of upper or lower extremity edema Respiratory: no respiratory distress, no audible wheezing, no labored breathing Psychiatric: mood and affect are appropriate Skin: no abrasions or open wounds. Neurologic: Alert and oriented x 3 and Normal speech. MUSCULOSKELETAL EXAMINATION: Gait: Normal walking mechanics and normal gait Bony Alignment: Normal alignment Inspection: Swelling: yes. Redness: no. Ecchymosis: no Palpation: No tenderness to palpation syndesmotic ligament or lateral collateral ligaments. ROM AND Strength: Dorsiflexion: Full A/PROM noted with full muscle strength bilaterally Plantar flexion: Full A/PROM noted with full muscle strength bilaterally Inversion: Full A/PROM noted with full muscle strength bilaterally Eversion: Full A/PROM noted with full muscle strength bilaterally Skin: Normal Neurovascularly intact distally Specialized Tests: There is no warmth, erythema, swelling or pain noted on examination of the bilateral calf areas. IMAGING: No imaging was performed today. Alecia Pantoja PA-C [facility] 10-01-2021 History of Present illness Narrative PT ASSESSMENT - CASTING ROOM Brian presents for Application of brace. Applied airsport to Left ankle Patient has been instructed in Care and proper application of brace. Scooter Flores Beeper: [id number] SELF Specialty Problems Ortho Problems High ankle sprain of left lower extremity CC: Established Patient, Follow Up, and Pain of the Left Ankle Injury/Surgery Date: 09/16/2021 Procedure: N/A Brian Guidry is a 20 year old female that returns today for follow up of high ankle sprain of left lower extremity. Patient states that she feels a lot better than her last visit. She denies any pain or swelling at today's visit. She states that the only soreness she gets is if she has been on her feet for an extended amount of time however still states that it is minimal. Swelling has subsided. She states that she still wears the walking boot majority of the time however states she does not wear it sometimes at home but has not increase in pain or swelling. PAIN EVALUATION 10/01/2021 0829 Pain Level: 1 Pain Location: Ankle-Left Description: Aching;Dull;Sore Duration Units: Weeks Frequency: Intermittent Intervention/Comfort measure: Medication;Reposition;Relaxati on;Cold ASSESSMENT: No diagnosis found. PLAN: Discussed options with the patient and recommended: weaning out of boot and into Air[employer] brace. Instructions given. Start PT Patient will follow up in 4 weeks Detailed instructions were reviewed with the patient and all questions were answered in detail. Patient voiced understanding and compliance with the above plan. We discussed emergent need to return to the express care or go to the emergency department. We discussed red flags associated with this condition and emergent treatment if they present. I spent a total of 20 minutes on the date of the service which included preparing to see the patient, [id number] patient care, completing clinical documentation, obtaining and/or reviewing separately obtained history, performing a medically appropriate examination, counseling and educating the patient/family/caregiver and communicating results to the patient/family/caregiver. Review of Systems Constitutional: Negative. HENT: Negative. Respiratory: Negative. Cardiovascular: Negative. Gastrointestinal: Negative. Endocrine: Negative. Skin: Negative. Neurological: Negative. Hematological: Negative. Musculoskeletal: Negative. All other systems reviewed and are negative. PHYSICAL FINDINGS: There were no vitals taken for this visit. General appearance: healthy, alert, well hydrated, pleasant, no distress. Cardiovascular: no signs of upper or lower extremity edema Respiratory: no respiratory distress, no audible wheezing, no labored breathing Psychiatric: mood and affect are appropriate Skin: no abrasions or open wounds. Neurologic: Alert and oriented x 3 and Normal speech. MUSCULOSKELETAL EXAMINATION: Gait: Normal walking mechanics and normal gait Bony Alignment: Normal alignment Inspection: Swelling: yes. Redness: no. Ecchymosis: no Palpation: No tenderness to palpation syndesmotic ligament or lateral collateral ligaments. ROM & Strength: Dorsiflexion: Full A/PROM noted with full muscle strength bilaterally Plantar flexion: Full A/PROM noted with full muscle strength bilaterally Inversion: Full A/PROM noted with full muscle strength bilaterally Eversion: Full A/PROM noted with full muscle strength bilaterally Skin: Normal Neurovascularly intact distally Specialized Tests: There is no warmth, erythema, swelling or pain noted on examination of the bilateral calf areas. IMAGING: No imaging was performed today. Alecia Pantoja PA-C documented in this encounter [facility] 10-01-2021 Instructions Alecia Pantoja PA-C - 10/01/2021 9:01 AM EDT Transitioning out of the boot: 1. Day 1: Take boot off for 2-3 hours during the day, as tolerated. If you were provided with an ankle brace, wear the brace for the 2-3 hours that you are not wearing the boot. Then remove the brace and wear boot the rest of the day, except while showering or sleeping. 2. Day 2: Take boot off for 4-5 hours during the day. If you were provided with an ankle brace, wear the brace for the 4-5 hours that you are not wearing the boot. Then remove the brace and wear boot the rest of the day, except while showering or sleeping. 3. Day 3: Take boot off for 6-7 hours during the day. If you were provided with an ankle brace, wear the brace for the 6-7 hours that you are not wearing the boot. Then remove the brace and wear boot the rest of the day, except while showering or sleeping. 4. Day 4: Take boot off for 8-9 hours during the day. If you were provided with an ankle brace, wear the brace for the 8-9 hours that you are not wearing the boot. Then remove the brace and wear boot the rest of the day, except while showering or sleeping. 5. Day 5: By this day, you should be out of the boot completely. If you were provided with an ankle brace, wear the brace all day, except while showering and sleeping for the next 3-4 weeks, then begin to wean out of the brace following guidelines used above to wean out of boot. You may wear the ankle brace for activities only for up to 3 months. documented in this encounter [facility] 09-17-2021 Note HNO ID: [id number] Author: RT Ana(R) Service: Radiology Author Type: Technologist Type: Progress Notes Filed: 09/17/2021 4:12 PM Note Text: Radiology Service Progress Note PATIENT NAME: Brian Guidry DATE OF SERVICE: September 17, 2021 TIME: 4:11 PM PATIENT IDENTITY VERIFICATION COMPLETED USING TWO (2) IDENTIFIERS: Name and Date of confirmed by patient verbally. FALL SCREENING: Has the patient had 2 falls in the last year or 1 fall with injury or currently using an Ambulatory Assistive Device (Walker, Cane, Wheelchair, Crutches, etc.)? Yes, Patient High Risk for Falls What interventions were put in place to prevent falls during this visit? Offered Assistance with Transfers/Clothing and Increased Observations by Caregivers PATIENT GENDER DATA: Female. status: : No status: NO. PATIENT RELEVANT IMPLANT DATA REVIEWED: Not Applicable RADIOLOGY DEPARTMENT: General X-ray: Exam(s) Completed: Lower Extremity X-Ray(s): Ankle, Left PERIPHERAL IV DATA: Not applicable SIGNED BY: Bianca Ohara, RT(R) September 17, 2021 4:11 PM [facility] 09-17-2021 Note HNO ID: [id number] Author: Alecia Pantoja PA-C Service: ? Author Type: Physician Trouble Shooter Type: Progress Notes Filed: 09/17/2021 4:23 PM Note Text: PROVIDER: Alecia Pantoja PA-C CC: New, Pain, and Swelling of the Left Ankle Injury/Surgery Date: 09/16/2021 Procedure: N/A HPI: This is a 20 year old female who is here for evaluation of her left ankle. Patient states that she was playing basketball and fell landing on her left ankle wrong. She states that this happened yesterday. She states that she has pain and swelling on the lateral aspect of her ankle. She states that she went to the ER and was placed into a tall walking boot. She states that the boot is helpful as it has decreased her pain. PAIN EVALUATION 09/17/2021 1506 Pain Level: 1 Pain Location: Ankle-Left Description: Aching;Dull;Sore Duration Amount of Time: 1 Duration Units: Days Frequency: Intermittent with movement Intervention/Comfort measure: Medication;Reposition;Relaxati on;Cold ASSESSMENT: (S93.492A) High ankle sprain of left lower extremity, initial encounter (primary encounter diagnosis) PLAN: Discussed options with the patient and recommended: 1. Continue tall boot, WBAT x 2 weeks. Activity modifications Patient will follow up in 2 weeks. Transition to brace and start PT if ready. Detailed instructions were reviewed with the patient and all questions were answered in detail. Patient voiced understanding and compliance with the above plan. We discussed emergent need to return to the express care or go to the emergency department. We discussed red flags associated with this condition and emergent treatment if they present. I spent a total of 30 minutes on the date of the service which included preparing to see the patient, [id number] patient care, completing clinical documentation, obtaining and/or reviewing separately obtained history, performing a medically appropriate examination, counseling and educating the patient/family/caregiver, ordering medications, tests, or procedures and communicating results to the patient/family/caregiver. PHYSICAL FINDINGS: Vitals: There were no vitals taken for this visit. There were no vitals taken for this visit. Patient's vitals and nursing notes were reviewed. General appearance: healthy, alert, well hydrated, pleasant, no distress. Cardiovascular: no signs of upper or lower extremity edema Respiratory: no respiratory distress, no audible wheezing, no labored breathing Psychiatric: mood and affect are appropriate Skin: no abrasions or open wounds. Neurologic: Alert and oriented x 3 and Normal speech. MUSCULOSKELETAL EXAMINATION: Gait: patient ambulates with the assistance of a crutches Bony Alignment: Normal alignment Inspection: Swelling: anterior lateral ankle. Redness: no. Ecchymosis: no Palpation: Greatest along lateral collateral ligaments and syndesmotic ligament. Mild tenderness to palpation anterior/medial ankle. No tenderness to palpation proximal fibula, base of the 5th MT or Lisfranc joint. ROM AND Strength: Dorsiflexion: Full A/PROM noted with full muscle strength bilaterally Plantar flexion: Full A/PROM noted with full muscle strength bilaterally Inversion: Full A/PROM noted with full muscle strength bilaterally Eversion: Full A/PROM noted with full muscle strength bilaterally Skin: Normal Neurovascularly intact distally Specialized Tests: There is no warmth, erythema, swelling or pain noted on examination of the bilateral calf areas. IMAGING: Final results and radiologist's interpretation, available in the [facility] health record. Images were reviewed with the patient/family members in the office today. My personal interpretation of the performed imaging is no acute abnormality. Review of Systems Constitutional: Negative. HENT: Negative. Respiratory: Negative. Cardiovascular: Negative. Gastrointestinal: Negative. Endocrine: Negative. Skin: Negative. Neurological: Negative. Hematological: Negative. Musculoskeletal: Negative. All other systems reviewed and are negative. PMHX: ACTIVE PROBLEM LIST High Ankle Sprain of Left Lower Extremity PSH: No past surgical history on file. FAMILY HX: No family history on file. SOCIAL: Social History Tobacco Use - Smoking status: Not on file - Smokeless tobacco: Not on file Substance Use Topics - Alcohol use: Not on file - Drug use: Not on file ALLERGY: Patient has no known allergies. MEDS: No current outpatient medications on file. No current facility-administered medications for this visit. Alecia Pantoja PA-C [facility] 09-16-2021 Note HNO ID: [id number] Author: RT Flora(Artur) Service: ? Author Type: Technologist Type: Progress Notes Filed: 09/17/2021 12:56 AM Note Text: Radiology Service Progress Note PATIENT NAME: Brian Guidry DATE OF SERVICE: September 16, 2021 TIME: 9:49 PM PATIENT IDENTITY VERIFICATION COMPLETED USING TWO (2) IDENTIFIERS: Name and Date of confirmed by patient verbally and Name and Date of confirmed by identification band. FALL SCREENING: Has the patient had 2 falls in the last year or 1 fall with injury or currently using an Ambulatory Assistive Device (Walker, Cane, Wheelchair, Crutches, etc.)? Emergency Room Patient: Screened in ED PATIENT GENDER DATA: Female. status: : No status: NO. PATIENT RELEVANT IMPLANT DATA REVIEWED: Not Applicable RADIOLOGY DEPARTMENT: General X-ray: Exam(s) Completed: Lower Extremity X-Ray(s): Tibia Fibula, Left and Ankle, Left PERIPHERAL IV DATA: Not applicable SIGNED BY: RT Flora(R) September 16, 2021 9:49 PM [facility] Evaluation note Diagnosis High ankle sprain of left lower extremity, subsequent encounter- [facility] Diagnosis High ankle sprain of left lower extremity, subsequent encounter [facility] Diagnosis High ankle sprain of left lower extremity, subsequent encounter [facility] Diagnosis Screening for STD (sexually transmitted disease)- Primary Screening examination for venereal disease documented in this encounter [facility] Summary Purpose Family History No Family History Records FoundNo Family History Records FoundNo Family History Records FoundNo Family History Records Found Advance Directives Documents on File Type Date Recorded 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 Advance Directive(s) 09/17/2021 1:37 AM Documents on File Type Date Recorded 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 Advance Directive(s) 09/17/2021 1:37 AM Reason for Referral Specialty Diagnoses / Procedures Referred By Beth go Referred To Contact Physical Therapy Diagnoses High ankle sprain of left lower extremity, subsequent encounter Procedures CONSULT TO PHYSICAL THERAPY Alecia Pantoja PA-C [address] [place] [address] [address] [place] [id number] Referral ID Status Reason Start Date Expiration Date V isits Requested Visits Authorized [id number] Authorized 07/03/2021 07/02/2022 30 30 Additional Source Comments INFORMATION SOURCE (unrecogn ized section and content) DATE CREATED AUTHOR 03/06/2020 [facility] DATE CREATED AUTHOR AUTHOR'S ORGANIZ ATION 11/02/2021 [facility] DATE CREATED AUTHOR AUTHOR'S ORGANIZ ATION 03/05/2022 [facility] [place] DATE CREATED AUTHOR AUTHOR'S ORGANIZ ATION 09/20/2022 [facility] Source Comments (unrecognize d section and content) In the event this informatio n is protected by the Federal Confidentiality of Alcohol and Drug Abuse Patient Records regulations: The Federal rules restrict any use of the information to criminally investigate or prosecute any alcohol or drug abuse patient.[facility] the event this information is protected by the Federal Confidentiality of Alcohol and Drug Abuse Patient Records regulations: The Federal rules restrict any use of the information to criminally investigate or prosecute any alcohol or drug abuse patient.[facility] the event this information is protected by the Federal Confidentiality of Alcohol and Drug Abuse Patient Records regulations: The Federal rules restrict any use of the information to criminally investigate or prosecute any alcohol or drug abuse patient.[facility] Reason for Visit (unrecogniz ed section and content) Reason Comments PT Discharge Specialty Diagnoses / Procedures Referred By Beth go Referred To Contact Physical Therapy Diagnoses High ankle sprain of left lower extremity, subsequent encounter Procedures CONSULT TO PHYSICAL THERAPY Alecia Pantoja PA-C [address] [place] [address] [facility] [address] [place] [id number] Referral ID Status Reason Start Date Expiration Date V isits Requested Visits Authorized [id number] Authorized 07/03/2021 07/02/2022 30 30 Reason Comments Established Patient Follow Up Pain Reason Comments PT Eval Reason Comments Std Check Pt would like to be tested of STD c/o pain with urination x 3 days. <item> Privacy Markings (unrecogniz ed section and content) Section Author: J-oAnn Anderson PROHIBITION ON REDISCLOSURE OF CONFIDENTIAL INFORMATION This notice accompanies a disclosure of information concerning a client made to you with the consent of such client. Scheduled Active and Recently Administ ered Medications (unrecognized section and content) Medication Order 07/08/2023 07/09/2023 07/10/2023 ceftriaxone (ROCEPHIN) 500 MG injection (COMPLETED) 500 mg, Intramuscular, ONCE, 1 dose, On Mon07/10/23 at 1049 [id number] (Given - Provid er: Astrid Matthews RN) FOR RECORDS PERTAINING TO PATIENTS WHO ARE OR HAVE BEEN ENROLLED IN A CHEMICAL DEPENDENCY/SUBSTANCEABUSE PROGRAM, SOME INFORMATION MAY BE OMITTED. This clinical summary was aggregated from multiple sources. Caution should be exercised in using it in the provision of clinical care. This summary normalizes information from multiple sources, and as a consequence, information in this document may materially change the coding, format and clinical context of patient data. In addition, data may be omitted in some cases. CLINICAL DECISIONS SHOULD BE BASED ON THE PRIMARY CLINICAL RECORDS. [employer] provides no warranty or guarantee of the accuracy or completeness of information in this document.
== END 2023-11-21 10:48 | disposition home or self-care (01) ==
LOC: US 10:48
DX: M79.662 Pain in left lower leg (principal)
CPT/HCPCS: 93971